=== PATIENT | male | born 1995 | race Caucasian/White ===

== ENCOUNTER 2021-10-27 23:38 | Inpatient (IN) | payer OTHER, SELFPAY ==
[~2021-10-27 23:38] MED LIST: Iopamidol-370 76% 500 ML 1 ML ONE
[2021-10-27] MEDS ORDERED: Rocuronium Bromide 10 MG/ML (10ML VIAL) ONE (23:51)
[2021-10-27] MEDS ORDERED: Propofol 1,000 MG/100 ML VIAL IV ONE (23:58)
[2021-10-28 00:11] LABS: #Basophils 0.1 thou/uL (0.0-0.2); #Eosinphils 0.3 thou/uL (0.0-0.7); #Neutrophils 7.1 thou/uL (1.40-6.50); %Eosinophils 2.1 % (0.0-10.0); %Lymphocytes 32.3 % (21.0-51.0); %Monocytes 8.1 % (0.0-10.0); %Neutrophils 56.5 % (42.0-75.0); Hemoglobin 15.8 g/dL (14.0-18.0); Mean Corpuscular HGB CONC 34.1 g/dL (32.0-36.0); Mean Corpuscular Hemoglobin 33.8 pg (27.0-31.0); Mean Platelet Volume 8.3 fL (7.4-10.4); Platelet Count 204 thou/uL (130-400); Red Blood Cell (RBC) Count 4.68 mill/uL (4.70-6.10); White Blood Cell (WBC) Count 12.5 thou/uL (4.8-10.8)
[2021-10-28 00:24] LABS: Phosphorus 3.9 mg/dL (2.3-4.7)
[2021-10-28 00:31] LABS: Acetaminophen Less than 6.0 mcg/mL (10.0-30.0); Alcohol 197 mg/dL (Less than 10); Salicylate Less than 8.0 mg/dL (15.0-30.0)
[2021-10-28 00:32] LABS: ALT (SGPT) 61 U/L (8-55); AST (SGOT) 60 U/L (5-34); Albumin 4.4 g/dL (3.5-5.0); Alkaline Phosphatase 71 U/L (40-110); Anion Gap 19 mmol/L (10-20); BUN (Urea Nitrogen) 11 mg/dL (8.9-20.6); Bilirubin, Total 0.4 mg/dL (0.2-1.2); Calc. Creatinine Clearance 0 mL/min (70-130); Calcium 8.9 mg/dL (7.8-10.44); Carbon Dioxide 17 mmol/L (22-29); Chloride 106 mmol/L (98-107); Globulin 2.9 g/dL (2.4-3.5); Glucose 95 mg/dL (70-105); Magnesium 2.2 mg/dL (1.6-2.6); Potassium 3.6 mmol/L (3.5-5.1); Protein, Total 7.3 g/dL (6.0-8.3); Sodium 138 mmol/L (136-145)
[2021-10-28] MEDS ORDERED: Dextrose 5% in Water 1,000 ML IV PRN (00:59)
[2021-10-28] MEDS ORDERED: Dextrose 50% Abboject 50 ML SYRINGE SLOW IVP PRN (00:59)
[2021-10-28] MEDS ORDERED: Ondansetron PF 4 MG/2 ML Vial IVP PRN (00:59)
[2021-10-28] MEDS ORDERED: hydrALAZINE 20 MG/ML VIAL SLOW IVP PRN (00:59)
[2021-10-28] MEDS ORDERED: Insulin Regular 300 UNITS/3 ML VIAL SC PRN (00:59)
[2021-10-28] MEDS ORDERED: Ventilator Sedation Protocol 1 EACH FS SCH (01:15)
[2021-10-28] MEDS ORDERED: ceFAZolin 2 GM/Dextrose 50 ML 2 GM in Premix Bag 1 BAG IVPB SCH (01:30)
[2021-10-28] MEDS ORDERED: Fentanyl CADD 100 ML IV SCH (01:30)
[2021-10-28] MEDS ORDERED: DISCONTINUE PREVIOUS NARCOTIC PAIN MEDICATIONS AND BENZODIAZEPINES FS SCH (01:30)
[2021-10-28] MEDS ORDERED: Midazolam HCl 5 mg/ml Vial ONE (01:39)
[2021-10-28] MEDS ORDERED: Ketamine 50 MG/ML (10ML VIAL) ONE (01:51)
[2021-10-28] MEDS ORDERED: Rocuronium Bromide 10 MG/ML (10ML VIAL) ONE (01:51)
[2021-10-28] MEDS: fentaNYL Citrate-0.9 % NaCl/PF 100 ML IV SCH ×2 (02:10→16:06)
[2021-10-28 02:19] LABS: Base Excess (BEa) -4.8 mEq/L (-2.0 to +3.0); CO2 Tension 41.4 mmHg (35.0-45.0); Calcium, Ionized (arterial) 1.12 mmol/L (1.12-1.30); Carboxyhemoglobin (COHb) 2.9 gm% (0.0-3.0); Hemoglobin (Hb) 14.7 g/dL (14.0-18.0); O2 Tension (PaO2), arterial 182.9 mmHg (80.0-100.0); pH, Arterial 7.32 (7.35-7.45)
[2021-10-28 02:21] LABS: Puncture Site RBA
[2021-10-28 02:48] LABS: Lactic Acid 1.7 mmol/L (0.5-2.2)
[2021-10-28] MEDS ORDERED: Potassium Phosphate 15 MMOL in Sodium Chloride 0.9% 250 ML 250 ML IVPB SCH (03:00)
[2021-10-28] MEDS: Propofol 1,000 MG/100 ML VIAL IV PRN ×4 (03:10→23:36)
[2021-10-28] MEDS: Sodium Chloride 0.9% 1,000 ML IV SCH ×4 (03:20→21:14)
[2021-10-28 03:29] LABS: SARS-CoV-2 NAA Rapid Test Not Detected (NotDetected)
[2021-10-28 03:59] LABS: Bacteria/HPF None Seen HPF (None Seen); Bilirubin Negative (Negative); Blood, Urine 1+ (Negative); Clarity Clear (Clear); Glucose, Urine (Dipstick) Normal (Negative); Ketone, Urine Negative (Negative); Leukocyte Negative Leu/uL (Negative); Nitrite Negative (Negative); Protein, Urine (Dipstick) Negative (Neg-Trace); RBC/HPF None Seen HPF (0-3); Specific Gravity, Urine 1.021 (1.002-1.036); Squamous Epithelial None Seen HPF (0-3); Urobilinogen Normal mg/dL (Less than 2); WBC/HPF 0-3 HPF (0-3)
[2021-10-28 04:04] LABS: Amphetamine Not Detected (NotDetected); Barbiturates Screen Not Detected (NotDetected); Benzodiazepine Screen Not Detected (NotDetected); Cocaine Metabolite Screen Not Detected (NotDetected); Methadone Not Detected (NotDetected); Methamphetamine Not Detected (NotDetected); Opiate Screen Not Detected (NotDetected); Oxycodone Screen Not Detected (NotDetected); Phencyclidine (PCP) Not Detected (NotDetected); THC/Cannabinoid Screen Not Detected (NotDetected); Tricyclic Screen Not Detected (NotDetected)
[2021-10-28 04:09] LABS: Urine Culture Reflex No No
[2021-10-28] MEDS ORDERED: FLU VACC QS2021-22(6MOS UP)/PF 60 MCG/0.5 ML SYRINGE IM ONE (09:00)
[2021-10-28] MEDS ORDERED: TETANUS AND DIPHTHERIA TOX/PF 0.5 ML DISP.SYRIN IM ONE (09:00)
[2021-10-28] MEDS: Famotidine/PF 20 mg/2ml Vial SLOW IVP SCH ×2 (09:41→21:14)
[2021-10-28] MEDS ORDERED: Midazolam HCl 2 mg/2 ml Vial ONE ×3 (13:47→18:21)
[2021-10-28] MEDS ORDERED: Fentanyl 100 MCG/2 ML VIAL ONE ×3 (13:47→17:34)
[2021-10-28] MEDS ORDERED: Bupivacaine PF 0.5% 30 ML VIAL ONE (14:21)
[2021-10-28] MEDS ORDERED: EPINEPHrine 1 MG/ML AMP ONE (14:21)
[2021-10-28] MEDS ORDERED: PROPOFOL 200 MG/20 ML VIAL ONE (16:50)
[2021-10-28] MEDS ORDERED: Dexamethasone 20 MG/5 ML VIAL ONE (16:50)
[2021-10-28] MEDS ORDERED: Ondansetron PF 4 MG/2 ML Vial ONE (16:50)
[2021-10-29] MEDS: Propofol 1,000 MG/100 ML VIAL IV PRN ×2 (02:27→04:45)
[2021-10-29] MEDS: Sodium Chloride 0.9% 1,000 ML IV SCH ×3 (03:46→18:13)
[2021-10-29 03:59] LABS: #Lymphocytes 0.7 thou/uL (1.20-3.40); #Monocytes 0.9 thou/uL (0.11-0.59); #Neutrophils 7.8 thou/uL (1.40-6.50); %Basophils 0.5 % (0.0-1.0); %Lymphocytes 7.3 % (21.0-51.0); %Monocytes 9.1 % (0.0-10.0); %Neutrophils 83.1 % (42.0-75.0); Hemoglobin 12.9 g/dL (14.0-18.0); Mean Corpuscular HGB CONC 33.7 g/dL (32.0-36.0); Mean Corpuscular Hemoglobin 34.1 pg (27.0-31.0); Mean Platelet Volume 8.6 fL (7.4-10.4); Platelet Count 149 thou/uL (130-400); RBC Distribution Width 11.7 % (11.5-14.5); Red Blood Cell (RBC) Count 3.77 mill/uL (4.70-6.10); White Blood Cell (WBC) Count 9.4 thou/uL (4.8-10.8)
[2021-10-29 04:18] LABS: Anion Gap 13 mmol/L (10-20); BUN (Urea Nitrogen) 7 mg/dL (8.9-20.6); Calc. Creatinine Clearance 237 mL/min (70-130); Calcium 8.5 mg/dL (7.8-10.44); Carbon Dioxide 22 mmol/L (22-29); Chloride 108 mmol/L (98-107); Glucose 118 mg/dL (70-105); Phosphorus 3.6 mg/dL (2.3-4.7); Potassium 4.5 mmol/L (3.5-5.1); Sodium 138 mmol/L (136-145)
[2021-10-29] MEDS ORDERED: traMADol HCl 50 MG TAB PO PRN (12:19)
[2021-10-29] MEDS ORDERED: Ibuprofen 600 MG TAB PO PRN (12:25)
[2021-10-29] MEDS ORDERED: traMADol HCl 50 MG TAB PO SCH (12:45)
[2021-10-29] MEDS ORDERED: Acetaminophen 325 MG TAB PO SCH (12:45)
[2021-10-29] MEDS: Gabapentin 300 MG CAP PO SCH ×2 (14:05→19:36)
[2021-10-29] MEDS: traMADol HCl 50 MG TAB PO SCH ×4 (14:06→23:50)
[2021-10-29] MEDS: Acetaminophen 325 MG TAB PO SCH ×3 (14:07→23:49)
[2021-10-29] MEDS: Famotidine/PF 20 mg/2ml Vial SLOW IVP SCH ×2 (14:08→19:36)
[2021-10-29] MEDS ORDERED: DC Sedation Protocol FS ONE (15:42)
[2021-10-29] MEDS: cloNIDine 0.1 MG TAB PO SCH ×2 (18:15→23:49)
[2021-10-29] MEDS: Oxazepam 10 MG CAP PO SCH (19:36)
[2021-10-30] MEDS: Acetaminophen 325 MG TAB PO SCH (05:08)
[2021-10-30] MEDS: cloNIDine 0.1 MG TAB PO SCH ×2 (05:09→11:41)
[2021-10-30] MEDS: traMADol HCl 50 MG TAB PO SCH (05:09)
[2021-10-30 05:19] VITALS: BMI 31.4
[2021-10-30 05:30] LABS: #Eosinphils 0.2 thou/uL (0.0-0.7); #Lymphocytes 2.4 thou/uL (1.20-3.40); #Neutrophils 5.5 thou/uL (1.40-6.50); %Basophils 0.4 % (0.0-1.0); %Eosinophils 2.6 % (0.0-10.0); %Lymphocytes 25.9 % (21.0-51.0); %Monocytes 10.7 % (0.0-10.0); %Neutrophils 60.5 % (42.0-75.0); Hemoglobin 14.5 g/dL (14.0-18.0); Mean Corpuscular Hemoglobin 33.5 pg (27.0-31.0); Mean Platelet Volume 8.4 fL (7.4-10.4); Platelet Count 155 thou/uL (130-400); Red Blood Cell (RBC) Count 4.32 mill/uL (4.70-6.10); White Blood Cell (WBC) Count 9.2 thou/uL (4.8-10.8)
[2021-10-30 05:52] LABS: Anion Gap 13 mmol/L (10-20); BUN (Urea Nitrogen) 9 mg/dL (8.9-20.6); Calc. Creatinine Clearance 227 mL/min (70-130); Calcium 8.8 mg/dL (7.8-10.44); Carbon Dioxide 26 mmol/L (22-29); Chloride 107 mmol/L (98-107); Glucose 95 mg/dL (70-105); Magnesium 2.2 mg/dL (1.6-2.6); Phosphorus 2.2 mg/dL (2.3-4.7); Potassium 4.1 mmol/L (3.5-5.1); Sodium 142 mmol/L (136-145)
[2021-10-30] MEDS ORDERED: Sodium Phosphate 30 MMOL in Sodium Chloride 0.9% 250 ML 250 ML IVPB SCH (07:45)
[2021-10-30] MEDS: Oxazepam 10 MG CAP PO SCH (08:25)
[2021-10-30] MEDS: Gabapentin 300 MG CAP PO SCH (08:25)
[2021-10-30 08:57] VITALS: TEMP 98.7
[2021-10-30] MEDS ORDERED: Folic Acid 1 MG TAB PO SCH (09:00)
[2021-10-30] MEDS ORDERED: Thiamine 100 MG TAB PO SCH (09:00)
[2021-10-30] MEDS ORDERED: Famotidine 20 MG TAB PO SCH (09:00)
[2021-10-30 11:43] VITALS: BP 135/76
[2021-10-30] MEDS ORDERED: traMADol HCl 50 MG TAB PO SCH (12:00)
[2021-10-30] MEDS ORDERED: Acetaminophen 500 MG TAB PO SCH (12:00)
== END 2021-10-30 13:55 | disposition home or self-care (01) | DRG 510 ==
LOC: ERS 23:38 → CCU 10-28 00:59
PROVIDERS: ADMIT Surgery; ATTEND Surgery
PROC: 0PSJ04Z Reposition Left Radius with Internal Fixation Device, Open Approach (ICD-10-PCS; principal; 2021-10-28)
PROC: 0PSL04Z Reposition Left Ulna with Internal Fixation Device, Open Approach (ICD-10-PCS; 2021-10-28)
PROC: 0HQ0XZZ Repair Scalp Skin, External Approach (ICD-10-PCS; 2021-10-28)
DX: S52.302A Unspecified fracture of shaft of left radius, initial encounter for closed fracture (principal); J96.00 Acute respiratory failure, unspecified whether with hypoxia or hypercapnia; S52.202A Unspecified fracture of shaft of left ulna, initial encounter for closed fracture; Z20.822 Contact with and (suspected) exposure to COVID-19; F10.129 Alcohol abuse with intoxication, unspecified; S01.81XA Laceration without foreign body of other part of head, initial encounter; F43.10 Post-traumatic stress disorder, unspecified; S06.0X0A Concussion without loss of consciousness, initial encounter; V49.49XA Driver injured in collision with other motor vehicles in traffic accident, initial encounter
CPT/HCPCS: 36415; 36416; 36600; 70450; 70486; 70498; 71045; 71260; 72125; 72170; 74177; 76000; 80048; 80053; 80306; 80307; 81001; 82805; 83605; 83735; 84100; 85025; 86850; 86900; 86901; 94002; 94640; 94760; C1713; G0390; J0171; J0690; J1100; J2250; J2405; J2704; J3010; J7050; J7620; Q9967; S0020; S0028; U0002